=== PATIENT | male | born 1995 | race Asian ===

== ENCOUNTER 2018-05-08 00:49 | Emergency (ER) | payer OTHER ==
--- NOTE | 2018-05-08 00:56 | EDPHY ---
H & P Stated Complaint: "Haven't slept in 20 hours, feel like i'm dying", anxious, n Time Seen by Provider: 05/08/18 00:56 HPI/ROS: HPI CHIEF COMPLAINT: Acute anxiety HISTORY OF PRESENT ILLNESS: 23-year-old male, [employer] student, from [place], presents emergency room stating he has had very little sleep over last 5 days and has been feeling very anxious. He states he suffers from anxiety. He does not take any daily medications. He arrives to the emergency room at 1:00 a.m. In the morning with his friends requesting sleep medication anxiety medication. Patient denies to me suicidal ideation or homicidal ideation, denies feeling very depressed. [employer] was used as he mainly speaks [place] and [place] but is better at [place]. [employer] was used for history, review of systems and physical exam. Past Medical History: History of anxiety, panic attacks, depression. Past Surgical History: Denies significant surgical history Social History: Denies drugs alcohol tobacco. [employer] student. Family History: Noncontributory ROS REVIEW OF SYSTEMS: 10 Systems were reviewed and negative with the exception of the elements mentioned in the history of present illness. Exam Constitutional appears well nontoxic no acute distress triage nursing summary reviewed, vital signs reviewed, awake/alert. Eyes normal conjunctivae and sclera, EOMI, PERRLA. HENT normal inspection, atraumatic, moist mucus membranes, no epistaxis, neck supple/ no meningismus, no raccoon eyes. Respiratory clear to auscultation bilaterally, normal breath sounds, no respiratory distress, no wheezing. Cardiovascular rate normal, regular rhythm, no murmur, no edema, distal pulses normal. Gastrointestinal soft, non-tender, no rebound, no guarding, normal bowel sounds, no distension, no pulsatile mass. Genitourinary no CVA tenderness. Musculoskeletal no midline vertebral tenderness, full range of motion, no calf swelling, no tenderness of extremities, no meningismus, good pulses, neurovascularly intact. Skin pink, warm, & dry, no rash, skin atraumatic. Neurologic awake, alert and oriented x 3, AAOx3, moves all 4 extremities equally, motor intact, sensory intact, CN II-XII intact, normal cerebellar, normal vision, normal speech. Psychiatric anxious and can't sleep. Heme/Lymph/Immune no lymphadenopathy. Differential Diagnosis: Includes but is not limited to in a particular order acute anxiety, panic attack, insomnia Medical Decision Making: Plan for this patient 1 mg p.o. Ativan, and re- evaluation. Re-evaluation: 3:04 a.m. patient re-evaluated was given 1 mg p.o. Ativan. Patient been resting here in fact he fell asleep at 1 point. No acute distress feels much better. Patient reports to me his anxiety and panic attacks for much improved. He would like to go home. He denies suicidal homicidal ideation. Return precautions discussed with the patient understands return emergency room if develops worsening symptoms Source: Patient - Personal History Current Tetanus Diphtheria and Acellular Pertussis (TDAP): Yes - Medical/Surgical History Hx Asthma: No Hx Chronic Respiratory Disease: No Hx Diabetes: No Hx Cardiac Disease: No Hx Renal Disease: No Hx Cirrhosis: No Hx Alcoholism: No Hx HIV/AIDS: No Hx Splenectomy or Spleen Trauma: No Other PMH: Denies - Social History Smoking Status: Never smoked Constitutional: Initial Vital Signs Temperature (C) 36.9 C 05/08/18 00:50 Heart Rate 76 05/08/18 00:50 Respiratory Rate 18 05/08/18 00:50 Blood Pressure 118/71 05/08/18 00:50 O2 Sat (%) 97 05/08/18 00:50 O2 Delivery Mode Room Air Allergies/Adverse Reactions: No Known Allergies Allergy (Unverified 05/08/18 00:50) Home Medications: Medication Instructions Recorded NK [No Known Home Meds] 05/08/18 Medical Decision Making - Data Points Medications Given: Discontinued Medications Lorazepam (Ativan) 1 mg PO ONCE ONE Stop: 05/08/18 01:05 Last Admin: 05/08/18 01:11 Dose: 1 mg Departure - Departure Disposition: Home, Routine, Self-Care Clinical Impression: Anxiety attack Condition: Good Instructions: Anxiety (ED) Additional Instructions: 1. Please follow up with Kay Reddy. Referrals: NONE *PRIMARY CARE P,. [Primary Care Provider] - As per Instructions [facility],. [Clinic] - As per Instructions
[2018-05-08] MEDS ORDERED: LORazepam 1 MG TAB PO ONE (01:04)
[2018-05-08 02:45] VITALS: BP 112/70
== END 2018-05-08 03:14 | disposition home or self-care (01) ==
DX: F41.9 Anxiety disorder, unspecified (principal)